=== PATIENT | male | born 1980 | race Caucasian/White ===

== ENCOUNTER 2025-02-11 12:45 | Inpatient (IN) | payer OTHER ==
[~2025-02-11] VITALS: Ht 175.3 cm; Wt 102.2 kg
[2025-02-11 13:58] LABS: PLATELET COUNT (AUTO) 354 K/uL (150-450); RED BLOOD CELL COUNT(AUTO) 5.41 MIL/uL (4.50-5.90); RED CELL DISTRIBUTION WIDTH 14.0 % (11.5-14.5); WHITE BLOOD COUNT (AUTO) 7.9 K/uL (4.5-11.0)
[2025-02-11 14:09] LABS: CALCIUM, TOTAL 9.0 mg/dL (8.8-10.5); CREATININE 0.68 mg/dL (0.60-1.30); GLOMERULAR FILTR. RATE CALC > 60 mL/min (>60); GLUCOSE,RANDOM 105 mg/dL (70-110); SODIUM SERUM 140 mmol/L (136-145); UREA NITROGEN, BLOOD 7 mg/dL (7-18)
[2025-02-11 14:25] VITALS: PULSE 69; RESP 14; O2SAT 99
[2025-02-11 14:34] LABS: COVID AG,FIA SOURCE NASAL SWAB
[2025-02-11 15:03] LABS: INFLUENZA TYPE A NEGATIVE FOR TYPE A (NEGATIVE); INFLUENZA TYPE B NEGATIVE FOR TYPE B (NEGATIVE); SARS-COV2 (COVID) ANTIGEN,FIA Negative (Negative)
[2025-02-11 20:44] LABS: MTB PCR w/Rif. Resistance-SPUT NOT DETECTED (Not Detectd)
[2025-02-11 23:45] VITALS: BP 127/75; PULSE 56; RESP 18; TEMP 98.5; O2SAT 96
[2025-02-12] MEDS ORDERED: ALBUTEROL SULFATE 2.5 MG/0.5 ML NEB SOLUTION NEB PRN (00:30)
[2025-02-12] MEDS ORDERED: BISACODYL 10 MG RECTAL RECTAL SUPPOSITORY PR PRN (00:30)
[2025-02-12] MEDS ORDERED: MAGNESIUM HYDROXIDE SUSPENSION 30 ML UDCUP PO PRN (00:30)
[2025-02-12] MEDS ORDERED: IPRATROPIUM BROMIDE 0.5 MG/2.5 ML NEB SOLUTION NEB PRN (00:30)
[2025-02-12 04:05] VITALS: BP 127/81; PULSE 63; RESP 19; TEMP 98.4; O2SAT 98
[2025-02-12 06:34] LABS: PLATELET COUNT (AUTO) 327 K/uL (150-450); RED BLOOD CELL COUNT(AUTO) 4.88 MIL/uL (4.50-5.90); RED CELL DISTRIBUTION WIDTH 14.2 % (11.5-14.5); WHITE BLOOD COUNT (AUTO) 8.5 K/uL (4.5-11.0)
[2025-02-12 06:58] LABS: CALCIUM, TOTAL 8.9 mg/dL (8.8-10.5); CREATININE 0.67 mg/dL (0.60-1.30); GLOMERULAR FILTR. RATE CALC > 60 mL/min (>60); GLUCOSE,RANDOM 93 mg/dL (70-110); SODIUM SERUM 141 mmol/L (136-145); UREA NITROGEN, BLOOD 9 mg/dL (7-18)
[2025-02-12 08:00] VITALS: BP 143/94; PULSE 62; RESP 18; TEMP 98.4; O2SAT 97
[2025-02-12] MEDS: PANTOPRAZOLE SODIUM 40 MG DR TABLET PO SCH (08:19)
[2025-02-12] MEDS: HEPARIN SODIUM,PORCINE 5,000 UNITS/ML VIAL SQ SCH (08:19)
[2025-02-12] MEDS: ONDANSETRON HCL 4 MG/2 ML VIAL IVP PRN (10:34)
[2025-02-12 17:05] VITALS: BP 147/92; PULSE 70; RESP 18; TEMP 97.5; O2SAT 97
[2025-02-12 18:05] LABS: MTB PCR w/Rif. Resistance-SPUT NOT DETECTED (Not Detectd)
[2025-02-12 20:00] VITALS: BP 142/80; PULSE 65; RESP 18; TEMP 98.1; O2SAT 98
[2025-02-12 20:19] VITALS: PULSE 70; RESP 14; O2SAT 96
[2025-02-13 04:00] VITALS: BP 132/80; PULSE 58; RESP 18; TEMP 98.2; O2SAT 98
[2025-02-13 09:17] VITALS: BP 138/82; PULSE 59; RESP 18; TEMP 98; O2SAT 97
[2025-02-13 20:41] VITALS: BP 137/79; PULSE 61; RESP 18; TEMP 98.2; O2SAT 96
[2025-02-14 05:20] VITALS: BP 125/82; PULSE 57; RESP 18; TEMP 98.4; O2SAT 95
[2025-02-14 08:01] VITALS: BP 143/86; PULSE 59; RESP 18; TEMP 98.2; O2SAT 100
[2025-02-14 09:07] LABS: QUANTIFERON+, Nil Value 0.06 IU/mL; QUANTIFERON+,Mitogen Value >10.00 IU/mL; QUANTIFERON+,TB1 Antigen Value 0.05 IU/mL; QUANTIFERON+,TB2 Antigen Value 0.05 IU/mL; QUANTIFERON, TB GOLD PLUS Negative (Negative)
[2025-02-14] MEDS: ACETAMINOPHEN 325 MG TABLET PO PRN (09:57)
[2025-02-14] MEDS: LOPERAMIDE HCL 2 MG CAPSULE PO PRN (18:40)
[2025-02-14 20:06] VITALS: BP 150/89; PULSE 61; RESP 18; TEMP 98.4; O2SAT 98
[2025-02-15 04:18] VITALS: BP 133/83; PULSE 68; RESP 18; TEMP 98.4; O2SAT 97
[2025-02-15 08:05] VITALS: BP 131/83; PULSE 61; RESP 18; TEMP 97.9; O2SAT 100
[2025-02-15] MEDS: ZOLPIDEM TARTRATE 5 MG TABLET PO PRN (20:27)
[2025-02-15 21:06] VITALS: BP 141/85; PULSE 64; RESP 18; TEMP 98.9; O2SAT 94
[2025-02-16 06:13] VITALS: BP 123/73; PULSE 65; RESP 18; TEMP 98.1; O2SAT 97
[2025-02-16 08:46] VITALS: BP_SYST 121; BP_SYST 147; BP_DIAS 70; BP_DIAS 91; PULSE 80; RESP 18; TEMP 98.1; O2SAT 98
[2025-02-16 20:05] VITALS: BP 141/97; PULSE 70; RESP 18; TEMP 99.3; O2SAT 96
[2025-02-17 04:52] VITALS: BP 134/79; PULSE 71; RESP 18; TEMP 98.1; O2SAT 98
[2025-02-17 08:00] VITALS: BP 149/100; PULSE 79; RESP 18; TEMP 98.6; O2SAT 97
[2025-02-17 19:57] VITALS: BP 142/82; PULSE 79; RESP 18; TEMP 98.6; O2SAT 96
[2025-02-18 05:14] VITALS: BP 123/85; PULSE 65; RESP 18; TEMP 98.2; O2SAT 97
[2025-02-18 08:15] VITALS: BP 146/88; PULSE 63; RESP 18; TEMP 98.1; O2SAT 95
[2025-02-18 10:36] LABS: GLUCOMETER DEV NAME(LOC) 4E.2; GLUCOSE,POINT OF CARE 135 MG/DL (70-110)
[2025-02-18 19:52] VITALS: BP 138/87; PULSE 68; RESP 18; TEMP 98.2; O2SAT 95
[2025-02-19 05:11] VITALS: BP 138/95; PULSE 61; RESP 18; TEMP 98.1; O2SAT 98
[2025-02-19 08:30] VITALS: BP 139/90; PULSE 64; RESP 18; TEMP 99.1; O2SAT 95
[2025-02-19 16:52] LABS: CALCIUM, TOTAL 8.9 mg/dL (8.8-10.5); CREATININE 0.88 mg/dL (0.60-1.30); GLOMERULAR FILTR. RATE CALC > 60 mL/min (>60); GLUCOSE,RANDOM 111 mg/dL (70-110); SODIUM SERUM 136 mmol/L (136-145); UREA NITROGEN, BLOOD 13 mg/dL (7-18)
[2025-02-19 16:56] LABS: ASPARTATE AMINOTRANSFERASE 22 U/L (15-37); TOTAL PROTEIN, SERUM 7.7 g/dL (6.4-8.2)
[2025-02-19 21:06] VITALS: BP 138/86; PULSE 64; RESP 18; TEMP 98.2; O2SAT 96
[2025-02-20 04:19] VITALS: BP 139/91; PULSE 59; RESP 19; TEMP 97.7; O2SAT 96
[2025-02-20 08:37] VITALS: BP 124/82; PULSE 60; RESP 18; TEMP 98.8; O2SAT 98
[2025-02-20] MEDS: PYRIDOXINE HCL 50 MG TABLET PO SCH (12:28)
[2025-02-20] MEDS: PYRAZINAMIDE 500 MG TABLET PO SCH (12:28)
[2025-02-20] MEDS: ETHAMBUTOL HCL 400 MG TABLET PO SCH (12:29)
[2025-02-20] MEDS: ISONIAZID 300 MG TABLET PO SCH (12:29)
[2025-02-20 20:00] VITALS: BP 142/88; PULSE 61; RESP 18; TEMP 98.6; O2SAT 95
[2025-02-21 04:00] VITALS: BP 124/79; PULSE 63; RESP 18; TEMP 98.5; O2SAT 96
[2025-02-21 08:00] VITALS: BP 135/76; PULSE 66; RESP 19; TEMP 98.8; O2SAT 96
[2025-02-21 20:00] VITALS: BP 147/90; PULSE 66; RESP 18; TEMP 99; O2SAT 96
[2025-02-22 06:29] VITALS: BP 130/78; PULSE 60; RESP 18; TEMP 98.2; O2SAT 100
[2025-02-22 06:44] LABS: ASPARTATE AMINOTRANSFERASE 15.0 U/L (15-37); TOTAL PROTEIN, SERUM 7.4 g/dL (6.4-8.2)
[2025-02-22 07:48] VITALS: BP 133/81; PULSE 60; RESP 18; TEMP 98.4; O2SAT 100
[2025-02-22 19:38] VITALS: BP 144/90; PULSE 64; RESP 18; TEMP 98.1; O2SAT 96
[2025-02-23 05:03] VITALS: BP 140/91; PULSE 55; RESP 18; TEMP 98.2; O2SAT 95
[2025-02-23 08:55] VITALS: BP 142/87; PULSE 71; RESP 20; TEMP 98.8; O2SAT 96
[2025-02-23 19:38] VITALS: BP 147/89; PULSE 64; RESP 18; TEMP 98.6; O2SAT 97
[2025-02-24] VITALS (7 sets, daily range): BP systolic 142–174; BP diastolic 80–108; PULSE 59–104; RESP 18; TEMP 97.7–100; O2SAT 96–98
[2025-02-24 17:36] LABS: COVID AG,FIA SOURCE NASAL SWAB
[2025-02-24 17:51] LABS: CALCIUM, TOTAL 9.0 mg/dL (8.8-10.5); CREATININE 0.93 mg/dL (0.60-1.30); GLOMERULAR FILTR. RATE CALC > 60 mL/min (>60); GLUCOSE,RANDOM 107 mg/dL (70-110); SODIUM SERUM 136 mmol/L (136-145); UREA NITROGEN, BLOOD 14 mg/dL (7-18)
[2025-02-24 17:54] LABS: PLATELET COUNT (AUTO) 403 K/uL (150-450); RED BLOOD CELL COUNT(AUTO) 5.32 MIL/uL (4.50-5.90); RED CELL DISTRIBUTION WIDTH 13.9 % (11.5-14.5); WHITE BLOOD COUNT (AUTO) 9.5 K/uL (4.5-11.0)
[2025-02-24] MEDS: SODIUM CHLORIDE 0.9% 1,000 ML IV ONE ×2 (18:05)
[2025-02-24 18:17] LABS: INFLUENZA TYPE A NEGATIVE FOR TYPE A (NEGATIVE); INFLUENZA TYPE B NEGATIVE FOR TYPE B (NEGATIVE); SARS-COV2 (COVID) ANTIGEN,FIA Negative (Negative)
[2025-02-25 04:54] VITALS: BP 152/87; PULSE 60; RESP 17; TEMP 97.7; O2SAT 97
[2025-02-25 07:08] LABS: CALCIUM, TOTAL 8.8 mg/dL (8.8-10.5); CREATININE 0.74 mg/dL (0.60-1.30); GLOMERULAR FILTR. RATE CALC > 60 mL/min (>60); GLUCOSE,RANDOM 91 mg/dL (70-110); SODIUM SERUM 138 mmol/L (136-145); UREA NITROGEN, BLOOD 12 mg/dL (7-18)
[2025-02-25 07:12] LABS: ASPARTATE AMINOTRANSFERASE 19 U/L (15-37); TOTAL PROTEIN, SERUM 7.3 g/dL (6.4-8.2)
[2025-02-25 08:00] VITALS: BP 145/87; PULSE 61; RESP 19; TEMP 98.6; O2SAT 97
[2025-02-25] MEDS ORDERED: AMLO2.5T96 PO (15:33)
== END 2025-02-25 15:55 | DRG 206 ==
LOC: EMS 12:51 → EDH 14:12 → 5N 23:47 → 6S 02-12 16:47
PROVIDERS: ADMIT Hospitalist; ATTEND Hospitalist
DX: J98.4 Other disorders of lung (principal); Z20.822 Contact with and (suspected) exposure to COVID-19; Z78.9 Other specified health status; Z87.891 Personal history of nicotine dependence; Z86.11 Personal history of tuberculosis
CPT/HCPCS: 71045; 71250; 80048; 80053; 80076; 82962; 85025; 86480; 87015; 87206; 87389; 87556; 87804; 89055; 94640; 99285; J1644; J2405; 36415-L1; 36415-TC